=== PATIENT | male | born 1955 | race Caucasian/White ===

== ENCOUNTER → 2019-02-17 18:26 | Outpatient (CLI) | payer OTHER, SELFPAY ==
--- NOTE | 2019-02-17 18:29 | DI.MRI.S_ITS ---
PROCEDURE: MR ANKLE LT WO CON INDICATIONS: UNSPECIFIED INJURY OF LEFT FOOT,INITIAL ENCOUNTER TECHNIQUE: Noncontrast sagittal T1 spin echo and T2 fast spin echo with fat saturation, axial proton density fast spin echo and T2 fast spin echo with fat saturation, coronal T1 spin echo and T2 fast spin echo with fat saturation through the ankle/hindfoot. COMPARISON: None. FINDINGS: Image quality: Excellent. Bones and joints: No bone marrow contusions or fractures. No hindfoot coalitions. No osteochondral injuries of the talar dome. No pathologic joint effusions. Medial structures: The posterior tibialis, flexor digitorum longus, and flexor hallucis longus tendons are intact. A small amount of fluid surrounds the tibialis posterior and foot and digitorum longus tendons. The posterior tibial neurovascular bundle appears normal within the tarsal tunnel, without extrinsic mass effect. The deep layer (anterior and posterior tibiotalar ligaments) and superficial layer (tibionavicular, tibiospring, and tibiocalcaneal ligaments) of the deltoid ligament appear normal. The spring ligament components (superomedial calcaneonavicular, medioplantar oblique calcaneonavicular, and inferoplantar longitudinal ligaments) are intact. Lateral structures: The anterior talofibular, calcaneofibular, and posterior talofibular ligaments appear intact. More superiorly, the anterior and posterior tibiofibular ligaments appear intact, as is the intermalleolar ligament. The tibiofibular syndesmosis is normal in width at 2 mm or less. The peroneus longus and brevis tendons demonstrate normal location. There is moderate T2 signal elevation within the proximal plantar segment of the peroneus longus tendon, which demonstrates moderate to high-grade tearing. Peroneus brevis tendon is intact. Adjacent bony peroneal tubercle is enlarged. The sinus tarsi demonstrates normal fatty signal, without edema, fibrosis, or cyst formation. Visualized sinus tarsi components (cervical ligament, interosseous talocalcaneal ligament, roots of the inferior extensor retinaculum) appear normal. The calcaneonavicular and calcaneocuboid components of the bifurcate ligament appear intact. The dorsal calcaneocuboid ligament appears intact. Anterior structures: The tibialis anterior, extensor hallucis longus, and extensor digitorum longus tendons appear intact. The dorsal talonavicular ligament appears intact. Posterior and plantar structures: There is loss of the normal anterior concavity of the mid and distal Achilles tendon, which is greatest in degree roughly 6.6 cm proximal to the calcaneal insertion site. There are small regions of high T2 signal intensity within the substance of the mid and distal Achilles tendon, indicating partial thickness tears. Moderate ill-defined elevated T2 signal elevation within the fat surrounding the Achilles tendon is present. Medial and lateral bands of the plantar fascia are of normal thickness. There are a few regions of metallic artifact within the plantar subcutaneous fat. IMPRESSION: 1. Presumed metallic foreign bodies within the plantar subcutaneous fat. This could be further assessed with plain films, if clinically indicated. 2. Partial hypertrophic tearing of the Achilles tendon. 3. Moderate to high-grade tearing of the proximal plantar segment of the peroneus longus tendon, associated with enlargement of the peroneal tubercle. 4. Medial flexor tenosynovitis. Dictated by: Kel Chin M.D. on 02/19/2019 at 8:44 Approved by: Kel Chin M.D. on 02/19/2019 at 8:54
== END ==
PROVIDERS: PCP Family Medicine; Visit Provider Specialist
DX: S86.012A Strain of left Achilles tendon, initial encounter (principal); S96.812A Strain of other specified muscles and tendons at ankle and foot level, left foot, initial encounter; M65.872 Other synovitis and tenosynovitis, left ankle and foot; X58.XXXA Exposure to other specified factors, initial encounter
CPT/HCPCS: 73721